=== PATIENT | female | born 1955 ===

== ENCOUNTER → 2018-10-15 | Outpatient (CLI) | payer OTHER | LOC: LAB SHORT 19:41 → LAB 19:41 | PROVIDERS: Nurse Practitioner Family | DX: Z01.419 Encounter for gynecological examination (general) (routine) without abnormal findings (principal) | CPT/HCPCS: G0145 ==

== ENCOUNTER 2019-01-11 12:26 | Day surgery (SDC) | payer OTHER ==
[~2019-01-11] VITALS: Ht 175.3 cm; Wt 96.4 kg
[~2019-01-11 12:26] MED LIST: VOLTAREN100 GM TOP
--- NOTE | 2019-01-11 14:58 | NUR ---
01/11/19 1458 Sofi Patel LATE ENTRY FOR TODAY DURING COLONOSCOPY 7ML NORMAL SALINE WITH INDIGO CARMINE USED TO RAISE ASCENDING COLON POLYP
== END 2019-01-11 14:42 | disposition home or self-care (01) ==
LOC: ORSCSDS 12:26
PROVIDERS: Internal Medicine Gastroenterology
PROC: 3E0H8GC Introduction of Other Therapeutic Substance into Lower GI, Via Natural or Artificial Opening Endoscopic (ICD-10-PCS; principal; 2019-01-11 13:45)
PROC: 0DBK8ZX Excision of Ascending Colon, Via Natural or Artificial Opening Endoscopic, Diagnostic (ICD-10-PCS; principal; 2019-01-11 13:45)
DX: Z12.11 Encounter for screening for malignant neoplasm of colon (principal); D12.2 Benign neoplasm of ascending colon; K57.30 Diverticulosis of large intestine without perforation or abscess without bleeding; Z87.891 Personal history of nicotine dependence; Z79.899 Other long term (current) drug therapy
CPT/HCPCS: 86803; 88305; J2704; J7120